=== PATIENT | male | born 2000 | race Caucasian/White ===

== ENCOUNTER 2023-02-04 20:16 | Emergency (ER) | payer SELFPAY ==
[2023-02-04] MEDS ORDERED: diphenhydrAMINE 25 MG CAP ONE (20:47)
[2023-02-04] MEDS ORDERED: Dexamethasone 4 mg/ml Vial ONE ×2 (20:47→20:49)
== END 2023-02-04 21:05 | disposition home or self-care (01) ==
LOC: CSHERS 20:16
DX: L25.9 Unspecified contact dermatitis, unspecified cause (principal); J45.909 Unspecified asthma, uncomplicated
CPT/HCPCS: 96372; 99282; J1100